=== PATIENT | female | born 1960 | race African-American/Black ===

== ENCOUNTER 2021-06-15 14:45 | Inpatient (IN) ==
[2021-06-15 16:25] LABS: Calcium 9.3 MG/DL (8.5-10.1); Osmolality,Calculated 265.5 MOS/KG (273-304); Potassium 5.5 MMOL/L (3.5-5.1)
[2021-06-15 16:41] LABS: Basophils % 0.2 % (0.0-0.8); Hematocrit 41.4 VOL% (35.7-47.0); Hemoglobin 13.5 GM/DL (12.0-16.0); Immature Granulocytes % 0.9 %; Immature Granulocytes Absolute 0.08 #; Lymphocytes # 0.8 10*3/uL (1.4-4.0); Lymphocytes % 9.1 % (21.3-54.2); Mean Corpuscular HGB Conc 32.6 GM/DL (32-36); Mean Corpuscular Volume 94.1 FL (87-102); Mean Platelet Volume 11.8 FL (9.6-12.0); Monocytes % 6.7 % (1.7-12.7); Neutrophils % 83.1 % (38.7-73.9); Platelet Count 275 T/CUMM (130-400); Red Cell Distribution Width 16.8 % (9.3-17.3); White Blood Count 9.2 T/CUMM (4-12)
[2021-06-15] MEDS ORDERED: ACETAMINOPHEN 325 MG TABLET PO PRN (18:11)
[2021-06-15] MEDS ORDERED: ONDANSETRON 4 MG/2 ML VIAL IV PRN (18:11)
[2021-06-15] MEDS ORDERED: hydrALAZINE 20 MG/1 ML VIAL IV PRN (18:11)
[2021-06-15] MEDS ORDERED: IBUPROFEN 600 MG TABLET PO PRN (18:11)
[2021-06-15] MEDS: SODIUM CHLORIDE 0.9% 1,000 ML IV SCH (19:37)
[2021-06-15] MEDS: ENOXAPARIN 30 MG/0.3 ML SYRINGE SUBCUT SCH (19:38)
[2021-06-15] MEDS: cefTRIAXone 1,000 MG in SODIUM CHLORIDE 0.9% 100 ML IV SCH (19:38)
[2021-06-15] MEDS: AZITHROMYCIN INJ 500 MG in SODIUM CHLORIDE 0.9% 250 ML IV SCH (21:00)
[2021-06-15] MEDS: DOCUSATE SODIUM 100 MG CAPSULE PO SCH (21:14)
[2021-06-15] MEDS: FAMOTIDINE 20 MG TABLET PO SCH (21:14)
[2021-06-15] MEDS: ASCORBIC ACID 500 MG TABLET PO SCH (21:14)
[2021-06-16] MEDS: SODIUM CHLORIDE 0.9% 1,000 ML IV SCH ×2 (04:12→12:53)
[2021-06-16 05:03] LABS: Basophils % 0.2 % (0.0-0.8); Eosinophils # 0.1 10*3/uL (0.0-0.87); Eosinophils % 0.7 % (0.00-10.9); Hematocrit 35.1 VOL% (35.7-47.0); Hemoglobin 11.8 GM/DL (12.0-16.0); Immature Granulocytes % 1.2 %; Lymphocytes # 2.3 10*3/uL (1.4-4.0); Lymphocytes % 26.9 % (21.3-54.2); Mean Corpuscular HGB Conc 33.6 GM/DL (32-36); Mean Corpuscular Volume 93.1 FL (87-102); Mean Platelet Volume 10.4 FL (9.6-12.0); Monocytes % 7.8 % (1.7-12.7); NRBC # 0.05 10*3/uL; Neutrophils % 63.2 % (38.7-73.9); Platelet Count 297 T/CUMM (130-400); Red Blood Count 3.77 MC/CUMM (3.8-5.5); Red Cell Distribution Width 16.6 % (9.3-17.3); White Blood Count 8.6 T/CUMM (4-12)
[2021-06-16 05:15] LABS: Calcium 8.8 MG/DL (8.5-10.1); Osmolality,Calculated 270.1 MOS/KG (273-304); Potassium 3.8 MMOL/L (3.5-5.1)
[2021-06-16] MEDS: ENOXAPARIN 30 MG/0.3 ML SYRINGE SUBCUT SCH (06:58)
[2021-06-16] MEDS ORDERED: REMDESIVIR 200 MG in SODIUM CHLORIDE 0.9% 210 ML IV ONE (09:00)
[2021-06-16] MEDS: DOCUSATE SODIUM 100 MG CAPSULE PO SCH ×2 (09:35→20:52)
[2021-06-16] MEDS: DEXAMETHASONE 4 MG/1 ML VIAL IV SCH (09:35)
[2021-06-16] MEDS: ASCORBIC ACID 500 MG TABLET PO SCH ×2 (09:35→20:52)
[2021-06-16] MEDS: FAMOTIDINE 20 MG TABLET PO SCH ×2 (09:35→20:51)
[2021-06-16] MEDS: METOPROLOL SUCCINATE XL 100 MG TABLET PO SCH (09:35)
[2021-06-16] MEDS: PANTOPRAZOLE 40 MG TABLET PO SCH (09:35)
[2021-06-16] MEDS: CHOLECALCIFEROL 1,000 UNIT TABLET PO SCH (09:35)
[2021-06-16] MEDS: ZINC GLUCONATE 50 MG TABLET PO SCH (09:36)
[2021-06-16] MEDS: ENOXAPARIN 40 MG/0.4 ML SYRINGE SUBCUT SCH (10:30)
[2021-06-16] MEDS: ALBUTEROL 2.5 MG/3 ML NEB RESP TX SCH ×2 (11:16→19:01)
[2021-06-16] MEDS: cefTRIAXone 1,000 MG in SODIUM CHLORIDE 0.9% 100 ML IV SCH (19:02)
[2021-06-16] MEDS: AZITHROMYCIN INJ 500 MG in SODIUM CHLORIDE 0.9% 250 ML IV SCH (19:02)
[2021-06-17 05:26] LABS: Hematocrit 33.7 VOL% (35.7-47.0); Immature Granulocytes % 0.6 %; Immature Granulocytes Absolute 0.04 #; Lymphocytes # 0.7 10*3/uL (1.4-4.0); Lymphocytes % 10.8 % (21.3-54.2); Mean Corpuscular HGB Conc 32.6 GM/DL (32-36); Mean Corpuscular Volume 93.9 FL (87-102); Mean Platelet Volume 10.2 FL (9.6-12.0); Monocytes % 8.5 % (1.7-12.7); NRBC # 0.06 10*3/uL; Neutrophils % 80.1 % (38.7-73.9); Platelet Count 384 T/CUMM (130-400); Red Blood Count 3.59 MC/CUMM (3.8-5.5); Red Cell Distribution Width 16.7 % (9.3-17.3); White Blood Count 6.6 T/CUMM (4-12)
[2021-06-17 06:01] LABS: Albumin 2.1 G/DL (3.4-5.0); Bilirubin,Total 0.4 MG/DL (0.20-1.00); Calcium 8.6 MG/DL (8.5-10.1); Potassium 4.4 MMOL/L (3.5-5.1); Total Protein 6.4 G/DL (6.4-8.2)
[2021-06-17] MEDS: POLYETHYLENE GLYCOL POWDER 17 GM PACK PO PRN (09:20)
[2021-06-17] MEDS: METOPROLOL SUCCINATE XL 100 MG TABLET PO SCH (09:20)
[2021-06-17] MEDS: CHOLECALCIFEROL 1,000 UNIT TABLET PO SCH (09:21)
[2021-06-17] MEDS: PANTOPRAZOLE 40 MG TABLET PO SCH (09:21)
[2021-06-17] MEDS: DEXAMETHASONE 4 MG/1 ML VIAL IV SCH (09:21)
[2021-06-17] MEDS: DOCUSATE SODIUM 100 MG CAPSULE PO SCH ×2 (09:21→20:50)
[2021-06-17] MEDS: ASCORBIC ACID 500 MG TABLET PO SCH ×2 (09:21→20:47)
[2021-06-17] MEDS: ENOXAPARIN 40 MG/0.4 ML SYRINGE SUBCUT SCH (09:21)
[2021-06-17] MEDS: FAMOTIDINE 20 MG TABLET PO SCH ×2 (09:21→20:47)
[2021-06-17] MEDS: ZINC GLUCONATE 50 MG TABLET PO SCH (09:21)
[2021-06-17] MEDS: REMDESIVIR 100 MG in SODIUM CHLORIDE 0.9% 100 ML IV SCH (11:10)
[2021-06-17] MEDS: cefTRIAXone 1,000 MG in SODIUM CHLORIDE 0.9% 100 ML IV SCH (17:40)
[2021-06-17] MEDS: AZITHROMYCIN INJ 500 MG in SODIUM CHLORIDE 0.9% 250 ML IV SCH (18:20)
[2021-06-17] MEDS: ALBUTEROL 2.5 MG/3 ML NEB RESP TX SCH (20:12)
[2021-06-18 05:16] LABS: Basophils % 0.1 % (0.0-0.8); Hemoglobin 11.9 GM/DL (12.0-16.0); Immature Granulocytes % 0.5 %; Immature Granulocytes Absolute 0.04 #; Lymphocytes # 0.6 10*3/uL (1.4-4.0); Lymphocytes % 7.7 % (21.3-54.2); Mean Corpuscular Volume 92.6 FL (87-102); Mean Platelet Volume 10.3 FL (9.6-12.0); Monocytes % 8.6 % (1.7-12.7); NRBC # 0.06 10*3/uL; Neutrophils % 83.1 % (38.7-73.9); Platelet Count 469 T/CUMM (130-400); Red Blood Count 3.78 MC/CUMM (3.8-5.5); Red Cell Distribution Width 16.3 % (9.3-17.3); White Blood Count 7.5 T/CUMM (4-12)
[2021-06-18 06:04] LABS: Albumin 2.1 G/DL (3.4-5.0); Bilirubin,Total 0.4 MG/DL (0.20-1.00); Calcium 9.1 MG/DL (8.5-10.1); Osmolality,Calculated 282.4 MOS/KG (273-304); Potassium 4.5 MMOL/L (3.5-5.1); Total Protein 6.6 G/DL (6.4-8.2)
[2021-06-18] MEDS: ALBUTEROL 2.5 MG/3 ML NEB RESP TX SCH ×3 (06:04→20:58)
[2021-06-18] MEDS: ASCORBIC ACID 500 MG TABLET PO SCH ×2 (09:18→21:27)
[2021-06-18] MEDS: FAMOTIDINE 20 MG TABLET PO SCH ×2 (09:18→21:26)
[2021-06-18] MEDS: CHOLECALCIFEROL 1,000 UNIT TABLET PO SCH (09:18)
[2021-06-18] MEDS: ZINC GLUCONATE 50 MG TABLET PO SCH (09:18)
[2021-06-18] MEDS: DOCUSATE SODIUM 100 MG CAPSULE PO SCH ×2 (09:18→21:26)
[2021-06-18] MEDS: PANTOPRAZOLE 40 MG TABLET PO SCH (09:18)
[2021-06-18] MEDS: DEXAMETHASONE 4 MG/1 ML VIAL IV SCH (09:19)
[2021-06-18] MEDS: ENOXAPARIN 40 MG/0.4 ML SYRINGE SUBCUT SCH (09:19)
[2021-06-18] MEDS: METOPROLOL SUCCINATE XL 100 MG TABLET PO SCH (09:19)
[2021-06-18] MEDS: POLYETHYLENE GLYCOL POWDER 17 GM PACK PO PRN (09:19)
[2021-06-18] MEDS: REMDESIVIR 100 MG in SODIUM CHLORIDE 0.9% 100 ML IV SCH (10:56)
[2021-06-18] MEDS: cefTRIAXone 1,000 MG in SODIUM CHLORIDE 0.9% 100 ML IV SCH (17:49)
[2021-06-18] MEDS: AZITHROMYCIN INJ 500 MG in SODIUM CHLORIDE 0.9% 250 ML IV SCH (18:17)
[2021-06-19] MEDS: ALBUTEROL 2.5 MG/3 ML NEB RESP TX SCH ×5 (01:32→19:34)
[2021-06-19 06:25] LABS: Basophils % 0.1 % (0.0-0.8); Hemoglobin 12.9 GM/DL (12.0-16.0); Immature Granulocytes Absolute 0.07 #; Lymphocytes # 0.8 10*3/uL (1.4-4.0); Lymphocytes % 10.4 % (21.3-54.2); Mean Corpuscular HGB Conc 33.1 GM/DL (32-36); Mean Corpuscular Volume 92.4 FL (87-102); Mean Platelet Volume 10.8 FL (9.6-12.0); Monocytes % 12.3 % (1.7-12.7); Neutrophils % 76.2 % (38.7-73.9); Platelet Count 522 T/CUMM (130-400); Red Blood Count 4.22 MC/CUMM (3.8-5.5); Red Cell Distribution Width 16.4 % (9.3-17.3); White Blood Count 7.2 T/CUMM (4-12)
[2021-06-19 06:49] LABS: Albumin 2.3 G/DL (3.4-5.0); Bilirubin,Total 0.4 MG/DL (0.20-1.00); Calcium 8.9 MG/DL (8.5-10.1); Osmolality,Calculated 281.5 MOS/KG (273-304); Potassium 4.4 MMOL/L (3.5-5.1); Total Protein 6.9 G/DL (6.4-8.2)
[2021-06-19] MEDS: ZINC GLUCONATE 50 MG TABLET PO SCH (09:00)
[2021-06-19] MEDS: DEXAMETHASONE 4 MG/1 ML VIAL IV SCH (09:01)
[2021-06-19] MEDS: CHOLECALCIFEROL 1,000 UNIT TABLET PO SCH (09:01)
[2021-06-19] MEDS: ASCORBIC ACID 500 MG TABLET PO SCH ×2 (09:02→20:31)
[2021-06-19] MEDS: FAMOTIDINE 20 MG TABLET PO SCH ×2 (09:02→20:33)
[2021-06-19] MEDS: DOCUSATE SODIUM 100 MG CAPSULE PO SCH ×2 (09:05→20:33)
[2021-06-19] MEDS: POLYETHYLENE GLYCOL POWDER 17 GM PACK PO PRN (09:05)
[2021-06-19] MEDS: METOPROLOL SUCCINATE XL 100 MG TABLET PO SCH (09:05)
[2021-06-19] MEDS: ENOXAPARIN 40 MG/0.4 ML SYRINGE SUBCUT SCH (09:07)
[2021-06-19] MEDS: PANTOPRAZOLE 40 MG TABLET PO SCH (09:07)
[2021-06-19] MEDS: REMDESIVIR 100 MG in SODIUM CHLORIDE 0.9% 100 ML IV SCH (11:30)
[2021-06-19] MEDS: AZITHROMYCIN INJ 500 MG in SODIUM CHLORIDE 0.9% 250 ML IV SCH (17:39)
[2021-06-19] MEDS: cefTRIAXone 1,000 MG in SODIUM CHLORIDE 0.9% 100 ML IV SCH (19:16)
[2021-06-19] MEDS: APIXABAN 2.5 MG TABLET PO SCH (20:31)
[2021-06-20] MEDS: ALBUTEROL 2.5 MG/3 ML NEB RESP TX SCH ×3 (06:43→16:12)
[2021-06-20 06:44] LABS: Hematocrit 36.6 VOL% (35.7-47.0); Immature Granulocytes Absolute 0.13 #; Lymphocytes # 0.6 10*3/uL (1.4-4.0); Mean Corpuscular HGB Conc 32.8 GM/DL (32-36); Mean Corpuscular Volume 93.4 FL (87-102); Mean Platelet Volume 9.9 FL (9.6-12.0); Monocytes % 14.8 % (1.7-12.7); Neutrophils % 74.2 % (38.7-73.9); Platelet Count 588 T/CUMM (130-400); Red Blood Count 3.92 MC/CUMM (3.8-5.5); Red Cell Distribution Width 16.2 % (9.3-17.3); White Blood Count 6.5 T/CUMM (4-12)
[2021-06-20 07:12] LABS: Albumin 2.3 G/DL (3.4-5.0); Bilirubin,Total 0.4 MG/DL (0.20-1.00); Calcium 8.7 MG/DL (8.5-10.1); Osmolality,Calculated 280.7 MOS/KG (273-304); Potassium 4.1 MMOL/L (3.5-5.1); Total Protein 6.3 G/DL (6.4-8.2)
[2021-06-20] MEDS: PANTOPRAZOLE 40 MG TABLET PO SCH (09:24)
[2021-06-20] MEDS: FAMOTIDINE 20 MG TABLET PO SCH (09:24)
[2021-06-20] MEDS: DOCUSATE SODIUM 100 MG CAPSULE PO SCH (09:24)
[2021-06-20] MEDS: ASCORBIC ACID 500 MG TABLET PO SCH (09:24)
[2021-06-20] MEDS: METOPROLOL SUCCINATE XL 100 MG TABLET PO SCH (09:24)
[2021-06-20] MEDS: CHOLECALCIFEROL 1,000 UNIT TABLET PO SCH (09:24)
[2021-06-20] MEDS: APIXABAN 2.5 MG TABLET PO SCH (09:24)
[2021-06-20] MEDS: ZINC GLUCONATE 50 MG TABLET PO SCH (09:24)
[2021-06-20] MEDS: DEXAMETHASONE 4 MG/1 ML VIAL IV SCH (09:24)
[2021-06-20] MEDS: REMDESIVIR 100 MG in SODIUM CHLORIDE 0.9% 100 ML IV SCH (11:12)
[2021-06-20 11:56] VITALS: BP 135/88
== END 2021-06-20 15:45 | disposition home health service (06) | DRG 177 ==
LOC: N.ED 14:45 → N.EDINP 14:45 → N.2E 06-16 14:20
PROVIDERS: ADMIT Family Medicine; ATTEND Family Medicine